=== PATIENT | female | born 1970 | race Caucasian/White ===

== ENCOUNTER 2016-11-05 20:13 | Emergency (ER) | payer OTHER ==
[~2016-11-05] VITALS: Ht 152.4 cm; Wt 59.1 kg
[~2016-11-05 20:13] MED LIST: LORTA5 PO
[2016-11-05 20:15] VITALS: BP 113/60; PULSE 101; RESP 16; TEMP 98.2; O2SAT 100
--- NOTE | 2016-11-05 21:07 | PD ---
HPI Chief Complaint: Injury Time Seen by Provider: 21:07 Travel History International Travel<30 days: No Contact w/Intl Traveler<30days: No Traveled to known affect area: No History of Present Illness HPI 46-year-old female with no significant medical history presents to emergency department for evaluation of possible achilles tendon injury. 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 She states that she came and landed incorrectly on her right lower extremity feeling an immediate pop in the area of her heel. Patient states she was unable to bear weight on the extremity, flex, extend the foot without significant pain. Pain right now is an 8 out of 10. Denies any alterations in sensation of the distal affected extremity. She has no symptoms to report at this time. [facility] Past Medical History Medical History: Denies Significant Hx ?: Not LMP: 10/14/2016 Tubal Ligation: Yes Social History Alcohol Use: No Tobacco Use: No Allergies-Medications (Allergen,Severity, Reaction): Coded Allergies: Sulfa (Unverified Allergy, Severe, RASH, VOMITING, SWELLING, 11/05/16) Penicillin (Verified Allergy, Intermediate, VOMITTING, SWELLING, 11/05/16) Codeine (Verified Allergy, Unknown, 11/05/16) Dilaudid (Verified Allergy, Unknown, 11/05/16) Reported Meds & Prescriptions Reported Meds & Active Scripts Active Zofran Odt (Ondansetron Odt) 4 Mg Tab 4 Mg SL Q6HR PRN Lortab (Hydrocodone-Acetaminophen) 5-325 Mg Tab 1 Tab PO Q6H PRN Ibuprofen 600 Mg Tab 600 Mg PO Q8HR PRN Hydrocodone/Acetaminophen 5 mg/325 mg Acetaminophen 325/5 Hydrocodone Tab 1-2 Tab PO Q6H PRN Review of Systems Except as stated in HPI: all other systems reviewed are Neg Physical Exam Narrative GENERAL: Well-nourished, well-developed female patient in no acute distress SKIN: Warm and dry. HEAD: Normocephalic. EYES: No scleral icterus. No injection or drainage. NECK: Supple, trachea midline. No JVD or lymphadenopathy. CARDIOVASCULAR: Regular rate and rhythm without murmurs, gallops, or rubs. RESPIRATORY: Breath sounds equal bilaterally. No accessory muscle use. GASTROINTESTINAL: Abdomen soft, non-tender, nondistended. MUSCULOSKELETAL: No cyanosis, or edema. There is an indentation on the right Achilles tendon where it is soft. It does not feel intact. Positive Moore' s test on the right. Distal pulses are palpable. Cap refills within normal limits. BACK: Nontender without obvious deformity. No CVA tenderness. Data Data Last Documented VS Vital Signs Date Time Temp Pulse Resp B/P Pulse Ox O2 Delivery O2 Flow Rate FiO2 11/05/16 20:46 Room Air 11/05/16 20:15 98.2 101 16 113/60 100 Orders Ketorolac Inj (Toradol Inj) (11/05/16 21:15) Mri Joint Ankle W/O Contrast (11/05/16 ) Splint Or Brace Apply/Monitor (11/05/16 23:20) Fiberglass Short Leg Splint Ad (11/06/16 ) [facility] Medical Decision Making Medical Screen Exam Complete: Yes Emergency Medical Condition: Yes Medical Record Reviewed: Yes Differential Diagnosis Achilles tendon rupture versus tear versus contusion versus muscle strain Narrative Course 46 year-old female presents to emergency department for evaluation of possible Achilles tendon injury. Patient appears without distress. She has positive Moore's test on the right lower extremity. MRI preliminary read shows a discontinuation of the Achilles tendon with associated edema. Patient is placed in a posterior short leg splint, counseled on care, and instructed to contact orthopedic surgeon for follow-up in the next day or 2. She is provided pain control. She agrees to return immediately with any acute worsening of symptoms. Diagnosis Primary Impression: Achilles tendon rupture Qualified Code: S86.011A - Achilles tendon rupture, right, initial encounter Referrals: Orthopaedic Surgeon Primary Care Physician Patient Instructions: Achilles Tendon Rupture (DC), General Instructions Additional Instructions: Nonweightbearing affected lower extremity Do not remove your splints Do not get it wet Follow-up with front end alignment specialist Elevate to reduce pain and swelling Ice to the affected area Return immediately to the emergency department with any acute worsening symptoms Med/Other Pt SpecificInfo: Prescription(s) given Scripts Ondansetron Odt (Zofran Odt)4 Mg Tab4 Mg SL Q6HR PRN (Nausea/Vomiting) #15 TAB Ref 0 Prov:Argelia Kasper 11/06/16 Hydrocodone-Acetaminophen (Lortab)5-325 Mg Tab1 Tab PO Q6H PRN (PAIN GREATER THAN 6) #12 TAB Ref 0 Prov:Nena De Santiago MD 11/06/16 Ibuprofen 600 Mg [id number] Mg PO Q8HR PRN (PAIN) #30 TAB Ref 0 Prov:Argelia Kasper 11/06/16 Disposition: 01 DISCHARGE HOME Condition: Stable Argelia Kasper Nov 05, 2016 21:07
[2016-11-05] MEDS ORDERED: KETOROLAC TROMETHAMINE 60 MG/2 ML (IM) VIAL IM ONE (21:15)
[2016-11-06] MEDS ORDERED: IBUP-232 PO (00:48)
[2016-11-06] MEDS ORDERED: HYDR-3533 PO (00:49)
[2016-11-06] MEDS ORDERED: ZOFR4TAB3 SL (00:55)
--- NOTE | 2016-11-06 07:24 | RADRPT ---
EXAM DATE/TIME: 11/05/2016 22:34 [place] COMPARISON: No previous studies available for comparison. INDICATIONS : Internal derangement. Achilles tendon damage MEDICAL HISTORY : Arthritis. SURGICAL HISTORY : section. ENCOUNTER: Initial ACUITY: 1 day PAIN SCORE: 6/10 LOCATION: Right ankle TECHNIQUE: Multiplanar, multisequence MRI examination was performed without contrast. FINDINGS: BONE/CARTILAGE: Bone marrow signal is homogeneous. Articular cartilage signal is within normal limits. TENDONS: There is significant fluid and edema around the Achilles tendon. 3.5 cm above the insertion there is a high grade partial tear. Significant amount of the distal tendon is anteriorly displaced and the p roximal tendon is also anteriorly distorted. I would estimate 10% of the tendon remaining intact cent rally but the majority of the tendon is completely torn. It's not significantly retracted. The anter iorly displaced tendon is suggesting a posterior laceration but I do not see an overlying skin injury . LIGAMENTS: The lateral and medial ligament complexes are intact. MISCELLANEOUS: The plantar aponeurosis is intact. The tarsal tunnel is within normal limits. CONCLUSION: There is significant fluid and edema around the Achilles tendon. 3.5 cm above the insertion there is a high grade partial tear. Significant amount of the distal tendon is anteriorly displaced and the p roximal tendon is also anteriorly distorted. I would estimate 10% of the tendon remaining intact cent rally but the majority of the tendon is completely torn. It's not significantly retracted. Meng Melchor MD on November 06, 2016 at 7:19 Board Certified Radiologist. This report was verified electronically.
== END 2016-11-06 01:10 | disposition home or self-care (01) ==
LOC: NEPB 20:13
DX: S86.019A Strain of unspecified Achilles tendon, initial encounter (principal); X50.1XXA Overexertion from prolonged static or awkward postures, initial encounter; Y93.41 Activity, dancing; Y92.89 Other specified places as the place of occurrence of the external cause; Y99.0 Civilian activity done for income or pay
CPT/HCPCS: 29515; 73721; 96372; 99283; E0113; J1885